=== PATIENT | male | born 1975 | race African-American/Black ===

== ENCOUNTER 2019-08-27 15:53 | Emergency (ER) | payer BC, OTHER ==
[2019-08-28 15:27] LABS: SARS-CoV-2 MS2 Positive; SARS-CoV-2 N Gene Negative; SARS-CoV-2 S Gene Negative; SARS-CoV-2 orf1ab Negative
== END 2019-08-27 16:30 | disposition home or self-care (01) ==
LOC: ERS 15:53
DX: Z20.828 Contact with and (suspected) exposure to other viral communicable diseases (principal)
CPT/HCPCS: 87635; 99283; U0003

== ENCOUNTER 2020-09-17 15:51 | Emergency (ER) | payer BC ==
[2020-09-17] MEDS ORDERED: Acetaminophen 500 MG TAB ONE (17:53)
[2020-09-17] MEDS ORDERED: Dexamethasone 4 mg/ml Vial ONE (19:10)
[2020-09-17] MEDS ORDERED: Ibuprofen 200 MG TAB ONE (19:22)
[2020-09-18 07:49] LABS: SARS-CoV-2 PCR by NAA DETECTED (NotDetected)
== END 2020-09-17 19:59 | disposition home or self-care (01) ==
LOC: ERS 15:51
DX: U07.1 COVID-19 (principal)
CPT/HCPCS: 87081; 87430; 99283; J1100; U0003; U0005

== ENCOUNTER 2020-09-30 | Emergency (ER) | payer BC | END 2020-09-30 17:41 | disposition home or self-care (01) ==